=== PATIENT | male | born 1950 | race Caucasian/White ===

== ENCOUNTER → 2016-06-19 | Outpatient (CLI) | payer OTHER ==
[~2016-06-19] MED LIST: ASPIRIN81 MG PO; BREO ELLIPTA 11 EACH INH; COREG6.25 MG PO; COUMADIN 2.5MG2.5 MG PO; COUMADIN 5MG TAB5 MG PO; GLUCOPHAGE 500500 MG PO; JANUVIA50 MG PO; LANOXIN TAB0.125 MG PO; LASIX40 MG PO; LEVOTHYROXINE25 MCG PO; LIPITOR40 MG PO; LISINOPRIL10 MG PO; OMNICEF 300 MG300 MG PO; POTASSIUM CHLO10 ME1 PO; PROVENTIL HFA 61 INH INH; SPIRIVA18 MCG INH; SYMBICORT 160-1 INHA INH
== END ==
LOC: SLEEP 21:30
DX: G47.33 Obstructive sleep apnea (adult) (pediatric) (principal)
CPT/HCPCS: 95810

== ENCOUNTER 2016-08-03 21:36 | Inpatient (IN) | payer OTHER ==
[~2016-08-03] VITALS: Ht 172.7 cm; Wt 84.8 kg
[2016-08-04 02:53] LABS: HEMOGLOBIN 12.8 gm/dl (14.0-17.5); RED BLOOD COUNT 4.66 M/UL (4.20-5.50); WHITE BLOOD COUNT 16.2 K/UL (4.5-11.0)
[2016-08-04 03:11] LABS: BUN/CREATININE RATIO 11 (0-10)
[2016-08-04] MEDS ORDERED: LIPITOR40 MG PO (07:28)
[2016-08-04] MEDS ORDERED: LISINOPRIL10 MG PO (07:28)
[2016-08-04] MEDS ORDERED: ASPIRIN81 MG PO (07:29)
[2016-08-04] MEDS ORDERED: LASIX40 MG PO (07:30)
[2016-08-04] MEDS ORDERED: COUMADIN 2.5MG2.5 MG PO (07:31)
[2016-08-04] MEDS ORDERED: COUMADIN 5MG TAB5 MG PO (07:33)
[2016-08-04] MEDS ORDERED: COREG6.25 MG PO (07:34)
[2016-08-04] MEDS ORDERED: GLUCOPHAGE 500500 MG PO (07:34)
[2016-08-04] MEDS ORDERED: POTASSIUM CHLO10 ME1 PO (07:35)
[2016-08-04] MEDS ORDERED: LEVOTHYROXINE25 MCG PO (07:36)
[2016-08-04] MEDS ORDERED: LANOXIN TAB0.125 MG PO (07:37)
[2016-08-04] MEDS ORDERED: PROVENTIL HFA 61 INH INH (07:38)
[2016-08-04] MEDS ORDERED: SPIRIVA18 MCG INH (07:39)
[2016-08-04] MEDS ORDERED: BREO ELLIPTA 11 EACH INH (07:40)
[2016-08-04] MEDS ORDERED: SYMBICORT 160-1 INHA INH (07:40)
[2016-08-04] MEDS ORDERED: JANUVIA50 MG PO (17:39)
[2016-08-04 20:52] LABS: HEMOGLOBIN 12.4 gm/dl (14.0-17.5); RED BLOOD COUNT 4.5 M/UL (4.20-5.50); WHITE BLOOD COUNT 12.9 K/UL (4.5-11.0)
[2016-08-05 03:49] LABS: HEMOGLOBIN 12.1 gm/dl (14.0-17.5); RED BLOOD COUNT 4.38 M/UL (4.20-5.50)
[2016-08-05 03:50] LABS: WHITE BLOOD COUNT 17.5 K/UL (4.5-11.0)
[2016-08-05 04:04] LABS: BUN/CREATININE RATIO 29 (0-10)
[2016-08-06 03:52] LABS: HEMOGLOBIN 11.6 gm/dl (14.0-17.5); RED BLOOD COUNT 4.24 M/UL (4.20-5.50)
[2016-08-06 04:03] LABS: WHITE BLOOD COUNT 21.9 K/UL (4.5-11.0)
[2016-08-07] MEDS ORDERED: OMNICEF 300 MG300 MG PO (13:12)
== END 2016-08-07 17:59 | disposition home or self-care (01) | DRG 871 ==
LOC: ER1 21:36 → M/S 08-04 05:20 → ZEROF 08-04 05:20 → M/S 08-04 06:30
PROVIDERS: Family Medicine; Hospitalist; ADMIT Internal Medicine
DX: A41.9 Sepsis, unspecified organism (principal); J18.9 Pneumonia, unspecified organism; E87.1 Hypo-osmolality and hyponatremia; Z72.0 Tobacco use; J44.9 Chronic obstructive pulmonary disease, unspecified; E11.65 Type 2 diabetes mellitus with hyperglycemia; I25.10 Atherosclerotic heart disease of native coronary artery without angina pectoris; D72.829 Elevated white blood cell count, unspecified; T38.0X5A Adverse effect of glucocorticoids and synthetic analogues, initial encounter; Z95.2 Presence of prosthetic heart valve; Z79.01 Long term (current) use of anticoagulants
CPT/HCPCS: 36415; 71010; 71020; 80048; 80053; 80162; 82550; 82553; 82962; 83874; 84484; 85025; 85027; 85610; 85730; 87040; 87070; 87205; 87278; 93005; 94640; 94664; 96374; 96375; 99284; J0456; J0696; J1644; J1650; J1956; J2920; J2930; J7030